=== PATIENT | male | born 1980 ===

== ENCOUNTER 2020-07-07 15:42 | Emergency (ER) | payer SELFPAY ==
[2020-07-07 16:57] VITALS: BP 141/88
--- NOTE | 2020-07-07 17:00 | Event Note ---
ED Screening Note Date of service: 07/07/20 Time: 16:59 ED Screening Note: Patient complains of palpitations and dizziness times approximately 6 months Recently seen by his primary care provider had a work-up done This initial assessment/diagnostic orders/clinical plan/treatment(s) is/are subj ect to change based on patients health status, clinical progression and re- assessment by fellow clinical providers in the ED. Further treatment and workup at subsequent clinical providers discretion. Patient/guardian urged not to elope from the ED as their condition may be serious if not clinically assessed and managed. Initial orders include: Labs EKG Chest x-ray
[2020-07-07 17:20] LABS: Basophils % (Auto) 0.4 % (0.0-1.8); Eosinophils # (Auto) 0.1 K/mm3 (0.0-0.4); Eosinophils % (Auto) 0.8 % (0.0-4.3); Hematocrit 48.2 % (35.5-45.6); Hemoglobin 16.7 gm/dl (11.8-15.2); Lymphocytes # (Auto) 1.2 K/mm3 (1.2-5.4); Mean Corpuscular HGB Conc 35 % (32-34); Mean Corpuscular Volume 90 fl (84-94); Monocytes # (Auto) 0.9 K/mm3 (0.0-0.8); Monocytes % (Auto) 7.7 % (0.0-7.3); Platelet Count 159 K/mm3 (140-440); Red Blood Count 5.33 M/mm3 (3.65-5.03); Red Cell Distribution Width 13.2 % (13.2-15.2)
--- NOTE | 2020-07-07 17:36 | XRay Report ---
CHEST 2 VIEWS INDICATION: palpitations. COMPARISON: None FINDINGS: Support devices: None. Heart: Within normal limits. Lungs: No acute air space or interstitial disease. Pleura: No significant pleural effusion. No pneumothorax. Additional findings: None. IMPRESSION: 1. No acute findings. Signer Name: Woody Andrews MD Signed: 07/07/2020 5:32 PM Workstation Name: [id number]
[2020-07-07 17:45] LABS: Alanine Aminotransferase 41 units/L (7-56); Albumin 4.5 g/dL (3.9-5); BUN/Creatinine Ratio 20; Blood Urea Nitrogen 14 mg/dL (9-20); Calcium 8.9 mg/dL (8.4-10.2); Hemolysis Index 9
--- NOTE | 2020-07-07 21:14 | Emergency Department Report ---
ED General Adult HPI - General Chief complaint: Arrhythmia/Palpitations Stated complaint: DIZZY/DIFFICULT BREATHING/POSSIBLE HEART ATTACK PUI?: No Time Seen by Provider: 07/07/20 16:58 Source: patient Mode of arrival: Ambulatory Limitations: No Limitations - History of Present Illness Initial comments: Patient is a 39-year-old male who comes to the emergency room today with a 6-month history of what he describes as heart racing associated with chest pain. Nothing seems to make the pain better or worse. He states that he works very hard and he thinks that he overworks. He reports having 3 children and a that he cares for. He states that although he sleeps he does not feel like he is rested when he wakes up and he has no energy. He states sometimes this is so bad that he cannot work. He does work as a contractor. Patient denies alcohol, cigarettes or drugs. In fact, patient denies any medical or surgical history. Patient has a mother and father that are both alive without heart disease. Patient states that he saw a doctor a while back and they recommended that he see a primary care physician for additional test. However, he did not follow-up until today. When asked why he came to the emergency room today, on , he stated he was just worried about it. Patient appears anxious on exam. He denies any history of anxiety bipolAR, schizophrenia or other mental illness - Related Data Previous Rx's Medication Instructions Recorded Last Taken Type hydrOXYzine PAMOATE [Vistaril] 25 mg PO QHS PRN #5 capsule 07/07/20 Unknown Rx Allergies Allergy/AdvReac Type Severity Reaction Status Date / Time No Known Allergies Allergy Unverified 07/07/20 16:51 ED Review of Systems ROS: Stated complaint: DIZZY/DIFFICULT BREATHING/POSSIBLE HEART ATTACK Other details as noted in HPI Comment: All other systems reviewed and negative ED Past Medical Hx - Past Medical History Previous Medical History?: Yes Additional medical history: Heart palpitations, Dizziness - Surgical History Past Surgical History?: No - Family History Family history: no significant - Social History Smoking Status: Never Smoker Substance Use Type: None - Medications Home Medications: Home Medications Medication Instructions Recorded Confirmed Last Taken Type hydrOXYzine PAMOATE [Vistaril] 25 mg PO QHS PRN #5 capsule 07/07/20 Unknown Rx ED Physical Exam - General Limitations: No Limitations General appearance: alert, in no apparent distress - Head Head exam: Present: atraumatic, normocephalic - Eye Eye exam: Present: normal appearance - ENT ENT exam: Present: mucous membranes moist - Neck Neck exam: Present: normal inspection - Respiratory Respiratory exam: Present: normal lung sounds bilaterally. Absent: respiratory distress - Cardiovascular Cardiovascular Exam: Present: regular rate, normal rhythm. Absent: systolic murmur, diastolic murmur, rubs, gallop - GI/Abdominal GI/Abdominal exam: Present: soft, normal bowel sounds - Rectal Rectal exam: Present: deferred - Extremities Exam Extremities exam: Present: normal inspection - Back Exam Back exam: Present: normal inspection - Neurological Exam Neurological exam: Present: alert, oriented X3 - Psychiatric Psychiatric exam: Present: normal affect, normal mood, anxious - Skin Skin exam: Present: warm, dry, intact, normal color. Absent: rash ED Course Vital Signs 07/07/20 16:54 Temperature 98.4 F Pulse Rate 87 Respiratory 16 Rate Blood Pressure 141/88 O2 Sat by Pulse 95 Oximetry ED Medical Decision Making - Lab Data Result diagrams: 07/07/20 17:09 07/07/20 17:09 - EKG Data -: EKG Interpreted by Fl EKG shows normal: sinus rhythm Rate: normal - EKG Data When compared to previous EKG there are: no significant change Interpretation: no acute changes - Radiology Data Radiology results: report reviewed, image reviewed [facility] - Medical Decision Making Lab Results 07/07/20 07/07/20 07/07/20 Range/Units 17:09 17:09 19:20 WBC 12.1 H (4.5-11.0) K/mm3 RBC 5.33 H (3.65-5.03) M/mm3 Hgb 16.7 H (11.8-15.2) gm/dl Hct 48.2 H (35.5-45.6) % MCV 90 (84-94) fl MCH 31 (28-32) pg MCHC 35 H (32-34) % RDW 13.2 (13.2-15.2) % Plt Count 159 (140-440) K/mm3 Lymph % (Auto) 10.0 L (13.4-35.0) % Bacon % (Auto) 7.7 H (0.0-7.3) % Eos % (Auto) 0.8 (0.0-4.3) % Baso % (Auto) 0.4 (0.0-1.8) % Lymph # (Auto) 1.2 (1.2-5.4) K/mm3 Bacon # (Auto) 0.9 H (0.0-0.8) K/mm3 Eos # (Auto) 0.1 (0.0-0.4) K/mm3 Baso # (Auto) 0.0 (0.0-0.1) K/mm3 Seg Neutrophils % 81.1 H (40.0-70.0) % Seg Neutrophils # 9.8 H (1.8-7.7) K/mm3 Sodium 138 (137-145) mmol/L Potassium 4.0 (3.6-5.0) mmol/L Chloride 103.4 (98-107) mmol/L Carbon Dioxide 23 (22-30) mmol/L Anion Gap 16 mmol/L BUN 14 (9-20) mg/dL Creatinine 0.7 L (0.8-1.3) mg/dL Estimated GFR > 60 ml/min BUN/Creatinine Ratio 20 % Glucose 118 H (75-100) mg/dL Calcium 8.9 (8.4-10.2) mg/dL Magnesium 2.20 (1.7-2.3) mg/dL Total Bilirubin 0.40 (0.1-1.2) mg/dL AST 25 (5-40) units/L ALT 41 (7-56) units/L Alkaline Phosphatase 102 (35-129) units/L Troponin T < 0.010 (0.00-0.029) ng/mL Total Protein 7.9 (6.3-8.2) g/dL Albumin 4.5 (3.9-5) g/dL Albumin/Globulin Ratio 1.3 % TSH 1.170 (0.270-4.200) mlU/mL Vital Signs 07/07/20 16:54 Temperature 98.4 F Pulse Rate 87 Respiratory 16 Rate Blood Pressure 141/88 O2 Sat by Pulse 95 Oximetry Labs noted. Troponin normal. Twelve-lead EKG not suggestive of acute coronary event. Patient has no risk factors. He has no history of cardiac disease. He has no family history of cardiac disease. He is not obese. He does not smoke or drink. I have used the alumni secretary to explain the lab findings to the patient. After about 20 minutes on the phone with the alumni secretary the patient adds that this is exactly what the last doctor told him that he saw. However, he did not believe that it was just anxiety and stress so he came to the ER today to get a second opinion. Patient states that this first doctor at a clinic told him that he would give him medication to help him for these symptoms. However, I told him the emergency room does not manage long-term medications. I did provide him with 5 Vistaril to assist on a as needed basis with his sleep. Using the alumni secretary patient is being discharged home with detailed instructions on diet, activity, medications and follow-up. Patient verbalizes understanding of discharge plan of care - Differential Diagnosis Rule out ACS, rule out thyroid disease, rule out overuse of stimulants Critical care attestation.: If time is entered above; I have spent that time in minutes in the direct care of this critically ill patient, excluding procedure time. ED Disposition Clinical Impression: Anxiety Disposition: DC-01 TO HOME OR SELFCARE Is pt being admited?: No Does the pt Need Aspirin: No Condition: Stable Instructions: Managing Anxiety, Adult Additional Instructions: REST HYDRATE WELL WITH WATER EXERCISE DAILY TO DECREASE YOUR STRESS FOLLOW UP WITH PCP REFERRAL BELOW ACTIVITY TOLERATED AVOID CAFFEINE/SODA/ALCOHOL Prescriptions: hydrOXYzine PAMOATE [Vistaril] 25 mg PO QHS PRN #5 capsule PRN Reason: Sleep Referrals: DEANDRA BOO MD [Staff Physician] - 3-5 Days Forms: Work/School Release Form(ED) Time of Disposition: 21:30 Print Language: MONEGAS[place]
== END 2020-07-07 21:40 | disposition home or self-care (01) ==
LOC: ED 15:42
DX: F41.9 Anxiety disorder, unspecified (principal); Z79.899 Other long term (current) drug therapy
CPT/HCPCS: 36415; 71046; 80053; 83735; 84443; 84484; 85025; 93005